=== PATIENT | female | born 1990 | race Caucasian/White ===

== ENCOUNTER 2020-09-30 08:00 | Outpatient (CLI) | payer OTHER ==
[2020-09-30 20:02] LABS: SARS-CoV-2 PCR by NAA Not Detected (NotDetected)
== END 2020-09-30 08:01 | disposition home or self-care (01) ==
LOC: CSHLAB 08:00
PROVIDERS: ATTEND Obstetrics & Gynecology
DX: Z20.822 Contact with and (suspected) exposure to COVID-19 (principal)
CPT/HCPCS: 87635; U0003; U0005

== ENCOUNTER 2024-06-22 05:30 | Inpatient (IN) | payer BC ==
[2024-06-22] MEDS ORDERED: HYDROcodone/Acetaminophen 5/325 mg Tablet PO PRN ×3 (07:51→17:36)
[2024-06-22] MEDS ORDERED: Ondansetron PF 4 MG/2 ML Vial IVP PRN ×2 (07:51→17:36)
[2024-06-22] MEDS ORDERED: hydrALAZINE 20 MG/ML VIAL SLOW IVP PRN ×2 (07:51→17:36)
[2024-06-22] MEDS ORDERED: Oxytocin 30 units/NS 500 ML 500 ML IV SCH ×3 (07:51→17:36)
[2024-06-22] MEDS ORDERED: fentaNYL 50 mcg/mL 1 mL Vial SLOW IVP PRN (07:51)
[2024-06-22] MEDS ORDERED: Lidocaine 1% (PF) 30 ML VIAL SC PRN (07:51)
[2024-06-22] MEDS ORDERED: Lactated Ringer's 1,000 ML IV SCH (07:51)
[2024-06-22] MEDS ORDERED: Ibuprofen 800 MG TAB PO PRN (07:51)
[2024-06-22] MEDS ORDERED: Promethazine HCl 25 MG/ML VIAL IM PRN (07:51)
[2024-06-22 07:52] VITALS: BMI 31.6
[2024-06-22 08:08] LABS: Hematocrit 39.1 % (34.9-44.5); Mean Corpuscular HGB CONC 35.8 g/dL (32.0-36.0); Mean Corpuscular Volume 86.7 fL (81.6-98.3); Mean Platelet Volume 10.1 fL (7.4-10.4); Platelet Count 207 10x3/uL (150-450); RBC Distribution Width 12.2 % (11.5-14.5); Red Blood Cell (RBC) Count 4.51 10x6/uL (3.90-5.03); White Blood Cell (WBC) Count 10.4 10x3/uL (3.5-10.5)
[2024-06-22 08:35] LABS: Syphilis Antibody Nonreactive (Nonreactive); Syphilis Antibody Index 0.07 S/CO (<1.00 Non-Reactive)
[2024-06-22 08:36] LABS: HBsAg Index 0.15 S/CO (0-0.99); Hep B Surf Ag - L&D Non-Reactive S/CO (NonReactive)
[2024-06-22] MEDS: fentaNYL/Ropivacaine Epidural 100 ML ONE (08:50)
[2024-06-22] MEDS ORDERED: Lidocaine 2% MPF 10 ML AMP (For Epidural Use) ONE (14:00)
[2024-06-22] MEDS ORDERED: Bupivacaine/Epinephrine 0.25% 30 ML VIAL ONE (14:00)
[2024-06-22] MEDS ORDERED: Bisacodyl 10 MG SUPP PR PRN (17:36)
[2024-06-22] MEDS ORDERED: Preparation H Ointment 28 GM TUBE PR PRN (17:36)
[2024-06-22] MEDS ORDERED: Lanolin Ointment 7 GM TUBE TOP PRN (17:36)
[2024-06-22] MEDS ORDERED: diphenhydrAMINE 25 MG CAP PO PRN (17:36)
[2024-06-22] MEDS ORDERED: Milk Of Magnesia 30 ML UDCUP PO PRN (17:36)
[2024-06-22] MEDS ORDERED: Benzocaine-Menthol 82.5 ML CAN TOP PRN (17:36)
[2024-06-22] MEDS: Ferrous Sulfate 325 MG TAB PO SCH (19:58)
[2024-06-22] MEDS: Oxytocin 30 units/NS 500 ML 500 ML ONE (19:58)
[2024-06-22] MEDS: Boostrix 0.5 ML (Tdap) VIAL (>/=7 yrs of age) IM ONE (21:41)
[2024-06-22] MEDS: Docusate 100 MG CAP PO SCH (21:47)
[2024-06-22] MEDS: Ibuprofen 800 MG TAB PO SCH (21:47)
[2024-06-23] MEDS: HYDROcodone/Acetaminophen 5/325 mg Tablet PO PRN (02:33)
[2024-06-23 04:10] LABS: Hematocrit 33.1 % (34.9-44.5); Hemoglobin 11.4 g/dL (12.0-15.5)
[2024-06-23] MEDS: Ferrous Sulfate 325 MG TAB PO SCH (07:13)
[2024-06-23] MEDS: Prenatal Vitamin 1 TAB PO SCH (08:53)
[2024-06-23] MEDS: Acetaminophen 500 MG TAB PO PRN (12:00)
[2024-06-23 16:21] VITALS: BP 107/69; TEMP 97.8
== END 2024-06-23 16:50 | disposition home or self-care (01) | DRG 805 ==
LOC: CSHLD 06:16 → CSHPP 18:10
PROVIDERS: ADMIT Obstetrics & Gynecology; ATTEND Obstetrics & Gynecology
PROC: 10E0XZZ Delivery of Products of Conception, External Approach (ICD-10-PCS; principal; 2024-06-22)
DX: O48.0 Post-term pregnancy (principal); O45.93 Premature separation of placenta, unspecified, third trimester; Z37.0 Single live birth; Z3A.40 40 weeks gestation of pregnancy
CPT/HCPCS: 36415; 51702; 85014; 85018; 85027; 86780; 86850; 86900; 86901; 87340